=== PATIENT | male | born 1955 | race Two or more races ===

== ENCOUNTER 2020-07-22 09:39 | Inpatient (IN) | payer OTHER, MEDICAID ==
[~2020-07-22] VITALS: Ht 177.8 cm; Wt 94.8 kg
[2020-07-22] MEDS ORDERED: ACCU-CHEK COMFORT CURVE STRIP VI ONE (10:00)
[2020-07-22] MEDS ORDERED: SODIUM CHLORIDE 0.9% 1,000 ML IV ONE ×2 (10:00)
[2020-07-22 10:11] LABS: Basophils # (auto) 0.1 10 ^3/uL (0-0.2); Basophils % (auto) 1.1 % (0.0-2.0); Eosinophils # (auto) 0.3 10 ^3/uL (0-0.8); Eosinophils % (auto) 5.8 % (0.0-7.0); Hematocrit 41.2 % (41.0-53.0); Hemoglobin 14.4 g/dL (13.5-17.5); Lymphocytes # (auto) 1.4 10 ^3/uL (0.4-5.4); Lymphocytes % (auto) 28.2 % (10.0-50.0); Mean Corpuscular Hemoglobin 32.5 pg (28.0-32.0); Mean Corpuscular Hgb Conc. 34.9 g/dL (32.0-36.0); Mean Corpuscular Volume 93.3 fL (80.0-100.0); Monocytes # (auto) 0.4 10 ^3/uL (0-1.3); Monocytes % (auto) 8.9 % (0.0-12.0); Neutrophils # (auto) 2.8 10 ^3/uL (1.6-8.6); Nucleated Red Blood Cells % 0.2 %; Platelet Count (auto) 240 10^3/uL (140-450); Red Blood Cells 4.42 10^6/uL (4.5-5.90); Red Cell Distribution Width 14.5 % (11.8-14.3); White Blood Cell 4.9 10^3/uL (4.4-10.8)
[2020-07-22] MEDS ORDERED: LABETALOL HCL 5 MG/ML 4ML SYRINGE IV ONE (10:15)
[2020-07-22] MEDS ORDERED: hydrALAZINE HCL 20 MG/ML VL IV ONE (10:45)
[2020-07-22 10:54] LABS: Albumin 3.4 g/dL (3.4-5.0); Calcium 8.7 mg/dL (8.5-10.1); Potassium 4.2 mmol/L (3.5-5.1)
[2020-07-22 10:58] LABS: BUN/Creatinine Ratio 15.7; Bilirubin, Total 0.3 mg/dL (0.2-1.0); Total Protein 6.9 g/dL (6.4-8.2)
[2020-07-22] MEDS ORDERED: ONDANSETRON HCL 4 MG/2 ML VIAL IV PRN (12:15)
[2020-07-22] MEDS ORDERED: MORPHINE SULF INJ 2 MG/ML SYRINGE 1ML IV PRN ×2 (12:15)
[2020-07-22] MEDS ORDERED: HYDROcodone-ACET 5/325MG TAB PO PRN (12:15)
[2020-07-22] MEDS ORDERED: NITROGLYCERIN 0.4 MG SL TAB SL PRN (12:15)
[2020-07-22] MEDS ORDERED: ACETAMINOPHEN 500 MG TAB PO PRN (12:15)
[2020-07-22] MEDS: hydrALAZINE HCL 20 MG/ML VL IV PRN (12:56)
[2020-07-22 13:28] LABS: Urine Bacteria NONE SEEN /hpf (None Seen); Urine Blood Negative /uL (Negative); Urine Specific Gravity 1.016 (1.001-1.035); Urine WBC 1 /hpf (0 - 3)
[2020-07-22] MEDS ORDERED: MIRTAZAPINE 30 MG TAB PO ONE (18:00)
[2020-07-22 18:50] VITALS: BP 176/84
[2020-07-22 22:00] VITALS: BP 158/85
[2020-07-22] MEDS ORDERED: LORazepam 2MG/ML-1ML VIAL IV PRN (22:00)
[2020-07-23 04:54] VITALS: BP 180/95
[2020-07-23 09:00] VITALS: BP 161/85
[2020-07-23] MEDS: MIRTAZAPINE 30 MG TAB PO SCH ×2 (09:19→20:42)
[2020-07-23] MEDS: METOPROLOL SUCCINATE XL 50 MG TAB PO SCH (09:20)
[2020-07-23] MEDS ORDERED: ADENOSINE 79 MG in GIVE UN-DILUTED 0 ML IV ONE (09:30)
[2020-07-23] MEDS ORDERED: LISINOPRIL 10 MG TAB PO SCH (10:00)
[2020-07-23] MEDS ORDERED: ENOXAPARIN SOD 100 MG/1 ML SYRINGE SC SCH (10:00)
[2020-07-23] MEDS ORDERED: IOHEXOL 350 MG/ML 100ML IJ ONE (10:58)
[2020-07-23 12:25] LABS: Potassium 4.1 mmol/L (3.5-5.1)
[2020-07-23 12:32] LABS: BUN/Creatinine Ratio 20.7; Calcium 8.6 mg/dL (8.5-10.1)
[2020-07-23 14:03] VITALS: BP 148/93
[2020-07-23] MEDS ORDERED: LISINOPRIL 10 MG TAB PO ONE (14:15)
[2020-07-23 15:32] LABS: Amphetamine Screen, Urine NEGATIVE (NEGATIVE); Barbiturate Scree,Urine NEGATIVE (NEGATIVE); Benzodiazephine Screen, Urine NEGATIVE (NEGATIVE); Cannabinoid Screen, Urine NEGATIVE (NEGATIVE); Cocaine Screen, Urine NEGATIVE (NEGATIVE); Opiate Scree,Urine NEGATIVE (NEGATIVE); Phencyclidine Screen, Urine NEGATIVE (NEGATIVE)
[2020-07-23] MEDS: ACETAMINOPHEN 325 MG TAB PO PRN (16:31)
[2020-07-23 16:53] VITALS: BP 156/70
[2020-07-23 22:00] VITALS: BP 147/82
[2020-07-23] MEDS ORDERED: ATORVASTATIN 20 MG TAB PO SCH (22:00)
[2020-07-24 05:00] VITALS: BP 158/79
[2020-07-24] MEDS: hydrALAZINE HCL 20 MG/ML VL IV PRN (05:26)
[2020-07-24 09:00] VITALS: BP 139/77
[2020-07-24] MEDS: METOPROLOL SUCCINATE XL 50 MG TAB PO SCH (09:10)
[2020-07-24] MEDS: MIRTAZAPINE 30 MG TAB PO SCH (09:12)
[2020-07-24] MEDS: ACETAMINOPHEN 325 MG TAB PO PRN (09:13)
[2020-07-24] MEDS ORDERED: ASPirin 81 mg TAB PO SCH (10:00)
[2020-07-24] MEDS ORDERED: LISINOPRIL 20 MG TAB PO SCH (10:00)
[2020-07-24 10:54] LABS: Hematocrit 43.7 % (41.0-53.0); Hemoglobin 15.2 g/dL (13.5-17.5)
[2020-07-24 13:00] VITALS: BP 133/75
== END 2020-07-24 14:00 | disposition left against medical advice (07) | DRG 312 ==
LOC: ER 09:39 → EDBD 09:39 → TELE 12:09 → TELE-WESTW 18:39
PROVIDERS: ADMIT Nurse Practitioner Acute Care; ATTEND Internal Medicine
DX: R55 Syncope and collapse (principal); K92.1 Melena; I10 Essential (primary) hypertension; R00.1 Bradycardia, unspecified; E66.9 Obesity, unspecified; M19.90 Unspecified osteoarthritis, unspecified site; E78.5 Hyperlipidemia, unspecified; F17.200 Nicotine dependence, unspecified, uncomplicated; Z20.822 Contact with and (suspected) exposure to COVID-19; Z53.29 Procedure and treatment not carried out because of patient's decision for other reasons; I48.91 Unspecified atrial fibrillation; I25.10 Atherosclerotic heart disease of native coronary artery without angina pectoris; I73.9 Peripheral vascular disease, unspecified; Z82.49 Family history of ischemic heart disease and other diseases of the circulatory system; Z83.3 Family history of diabetes mellitus; Z86.73 Personal history of transient ischemic attack (TIA), and cerebral infarction without residual deficits; Z88.8 Allergy status to other drugs, medicaments and biological substances; Z68.30 Body mass index [BMI] 30.0-30.9, adult
CPT/HCPCS: 36415; 70450; 70551; 71045; 71275; 74176; 78452; 80048; 80053; 80061; 80307; 81001; 82962; 84484; 85014; 85018; 85025; 85379; 87426; 93005; 93017; 93306; 93886; 93970; 95819; 96361; 96374; 96376; G0378; J0153; J3490